=== PATIENT | male | born 1950 ===

== ENCOUNTER 2021-08-12 07:18 | Day surgery (SDC) | payer MEDICARE, BC ==
[2021-08-12] MEDS ORDERED: fentaNYL 100 MCG/2 ML SDV ONE (07:39)
[2021-08-12] MEDS ORDERED: Propofol 200 MG/20 ML SDV ONE (07:39)
[2021-08-12] MEDS ORDERED: Lactated Ringers 1,000 ML IV SCH ×2 (08:00→15:30)
--- NOTE | 2021-08-12 08:00 | PCM.PREANE ---
Preanesthetic Assessment - Anesthesia/Transfusion/Family Hx Anesthesia History: Prior Anesthesia Reaction (PONV) Type of Anesthesia Reaction: Other (see below) (PONV) Family History of Anesthesia Reaction: No Transfusion History: No Prior Transfusion(s) - Review of Systems General: No Symptoms, Other (Recently diagnosied with prostate CA yet no treatment has been provided. Gout.) Pulmonary: No Symptoms, Other (Quit smoking 57 years ago) Cardiovascular: No Symptoms (HTN well controlled. Pt states to being physically active with no SOB of CP) Gastrointestinal: No Symptoms, Other (GERD well controlled) Neurological: No Symptoms Other: Reports: None - Physical Assessment NPO Status Date: 08/11/21 NPO Status Time: 00:00 Height: 1.8 m Weight: 94.801 kg ASA Class: 2 Mental Status: Alert & Oriented x3 Airway Class: Mallampati = 2 (Liu) Dentition: Reports: Normal Dentition Thyro-Mental Finger Breadths: 3 Mouth Opening Finger Breadths: 3 ROM/Head Extension: Full Lungs: Clear to Auscultation, Normal Respiratory Effort Cardiovascular: Regular Rate, Regular Rhythm - Allergies Allergies/Adverse Reactions: Allergies Allergy/AdvReac Type Severity Reaction Status Date / Time acetaminophen [From Vicodin] Allergy Nausea and Verified 08/07/21 12:08 Vomiting hydrocodone [From Vicodin] Allergy Nausea and Verified 08/07/21 12:08 Vomiting Penicillins Allergy Anaphylactic Verified 08/07/21 12:08 Shock - Blood Blood Available: No - Anesthesia Plan Pre-Op Medication Ordered: None - Acknowledgements Anesthesia Type Planned: General Anesthesia Pt an Appropriate Candidate for the Planned Anesthesia: Yes Alternatives and Risks of Anesthesia Discussed w Pt/Guardian: Yes Pt/Guardian Understands and Agrees with Anesthesia Plan: Yes PreAnesthesia Questionnaire HEENT History: Reports: Cataract, Impaired Vision Cardiovascular History: Reports: Hypertension Respiratory History: Reports: None Gastrointestinal History: Reports: Diverticulosis, GERD Genitourinary History: Reports: Prostate Disorder Other Genitourinary History: recent dx of Prostate cancer Musculoskeletal History: Reports: Gout Neurological History: Reports: None Psychiatric History: Reports: None Endocrine/Metabolic History: Reports: None Hematologic History: Reports: None Immunologic History: Reports: None Oncologic (Cancer) History: Reports: Prostate Dermatologic History: Reports: None - Past Surgical History Head Surgeries/Procedures: Reports: None HEENT Surgical History: Reports: Cataract Surgery, Detached Retina, Other (See Below) Other HEENT Surgeries/Procedures: repair of eye injury GI Surgical History: Reports: Colonoscopy Male Surgical History: Reports: Prostate Biopsy Musculoskeletal Surgical History: Reports: None - SUBSTANCE USE Tobacco Use Status *Q: Never Tobacco User Recreational Drug Use History: No - HOME MEDS Home Medications: Home Meds Multivitamin 1 tab PO DAILY 08/07/21 [History] Omeprazole 20 mg PO QAM 08/07/21 [History] Telmisartan 80 mg PO QAM 08/07/21 [History] allopurinoL [Zyloprim] 100 mg PO BID 08/07/21 [History] amLODIPine Besylate [Amlodipine Besylate] 10 mg PO BEDTIME 08/07/21 [History] - CURRENT (IN HOUSE) MEDS Current Meds: Current Medications Lactated Ringer's (Ringers, Lactated) 1,000 mls @ 125 mls/hr IV ASDIRECTED ARIAN Discontinued Medications Fentanyl (Fentanyl 100 Mcg/2 Ml Sdv) Confirm Administered Dose 100 mcg .ROUTE .STK-MED ONE Stop: 08/12/21 07:40 Lidocaine HCl (Lidocaine 1% 5 Ml Sdv) Confirm Administered Dose 5 ml .ROUTE .STK-MED ONE Stop: 08/12/21 07:40 Propofol (Propofol 200 Mg/20 Ml Sdv) Confirm Administered Dose 400 mg .ROUTE .STK-MED ONE Stop: 08/12/21 07:40
[2021-08-12] MEDS ORDERED: Ondansetron 4 MG/2 ML SDV IVPUSH ONE (08:01)
[2021-08-12] MEDS ORDERED: Metoclopramide 10 MG/2 ML SDV IVPUSH ONE (08:01)
--- NOTE | 2021-08-12 10:07 | PCM.OPNOTE ---
- General Post-Op/Procedure Note Date of Surgery/Procedure: 08/12/21 Operative Procedure(s): Colonoscopy and polypectomies Findings: colon polyps Diverticulosis dictation number [id number] Pre Op Diagnosis: screening colonoscopy Post-Op Diagnosis: colon polyps. Diverticulosis [place] [facility] [place]geon: Simone Andrews Pathology: colon polyps Complications: None Condition: Good
--- NOTE | 2021-08-12 10:28 | PCM.POSTAN ---
POST ANESTHESIA ASSESSMENT - MENTAL STATUS Mental Status: Alert, Oriented - VITAL SIGNS Vital Signs: Last Vital Signs Temp 36.6 C 08/12/21 10:06 Pulse 58 L 08/12/21 10:21 Resp 10 L 08/12/21 10:21 BP 83/47 L 08/12/21 10:21 Pulse Ox 99 08/12/21 10:21 - RESPIRATORY Respiratory Status: Respiratory Rate WNL, Airway Patent, O2 Saturation Stable - CARDIOVASCULAR CV Status: Pulse Rate WNL, Blood Pressure Stable - GASTROINTESTINAL GI Status: No Symptoms - POST OP HYDRATION Hydration Status: Adequate & Stable
--- NOTE | 2021-08-12 10:28 | PCM48HPAN ---
Post Anesthesia Note - EVALUATION WITHIN 48HRS OF ANESTHETIC Vital Signs in Normal Range: Yes Patient Participated in Evaluation: Yes Respiratory Function Stable: Yes Airway Patent: Yes Cardiovascular Function Stable: Yes Hydration Status Stable: Yes Pain Control Satisfactory: Yes Nausea and Vomiting Control Satisfactory: Yes Mental Status Recovered: Yes Vital Signs: Last Vital Signs Temp 36.6 C 08/12/21 10:06 Pulse 58 L 08/12/21 10:21 Resp 10 L 08/12/21 10:21 BP 83/47 L 08/12/21 10:21 Pulse Ox 99 08/12/21 10:21
--- NOTE | 2021-08-12 14:44 | OR ---
SURGEON: AUSTIN TAYLOR MD DATE OF PROCEDURE: 08/12/2021 PREOPERATIVE DIAGNOSIS: Screening colonoscopy. POSTOPERATIVE DIAGNOSES: 1. Diverticulosis. 2. Two colon polyps, one at 15 cm and another at 10 cm. PROCEDURES PERFORMED: 1. Colonoscopy. 2. Cold biopsy polypectomy. PRIMARY SURGEON: Austin Taylor MD ANESTHESIA: With Anesthesiology. EXTENT OF COLONOSCOPY: To the cecum. BOWEL PREP: Very good. LIMITATIONS: None. REASON FOR PROCEDURE: Patient is a pleasant 71-year-old gentleman whose last colonoscopy was 10 years ago. It was normal other than diverticulosis. He denies any blood in his stool. He denies any changes in his bowel habits. He denies any family history of colon cancer. PROCEDURE IN DETAIL: Physical examination was performed. Major risks and benefits associated with procedure were explained to the patient in detail. Patient verbalized understanding and agreement of the same. Patient was then connected to appropriate monitoring devices and IV started. EKG, pulse, pulse oximetry, blood pressure, and capnography were monitored throughout the entire procedure. Continuous oxygen and sedation were provided by the anesthesiologist. The patient was placed in left lateral decubitus position. Sedation was began. After adequate sedation was achieved, digital rectal exam was performed. No rectal masses or polyps were felt. The patient did have a hard prostate consistent with his recent diagnosis of prostate cancer. Now, a well-lubricated Olympus colonoscope was inserted into the rectum and advanced under direct visualization to the level of the cecum. Go through the sigmoid colon, there was some diverticulosis which made it a little harder to navigate, but I was able to get through the sigmoid colon all the way to the cecum. Cecum was identified by both visual and anatomic landmarks. Photographs were taken of the cecal cap and terminal ileum. Scope was then slowly withdrawn in a somewhat circular fashion looking at the color, texture, anatomy, and integrity of mucosa from the cecum to the anal canal. The patient did have some light liquid stool which was suctioned and irrigated out for a great look at the mucosa. Again, the patient did have some diverticulosis throughout the sigmoid colon. Right at about 15 cm, the patient had a smaller about 5 to 7 mm polyp that was removed with cold biopsy polypectomy. It was completely removed with good hemostasis. Scope was continued to be withdrawn. The patient had another polyp at 10 cm. This looked more hyperplastic. This was removed again with a cold biopsy polypectomy. The scope was retroflexed in the rectum. He had some noninflamed internal hemorrhoids. The scope was completely removed and the procedure was terminated. ENDOSCOPIC DIAGNOSES: 1. Diverticulosis. 2. Colon polyps at 10 to 15 cm. RECOMMENDATIONS: Followup colonoscopy will depend on pathology, but most likely he will need another one in five years; sooner, if develops signs and symptoms such as change in bowel habits or blood in the stool. STEPHANIE / KEARA /[id number]
== END 2021-08-12 10:50 | disposition home or self-care (01) ==
LOC: MW.SDS 07:18
PROVIDERS: ATTEND Surgery
DX: Z12.11 Encounter for screening for malignant neoplasm of colon (principal); K63.5 Polyp of colon; K57.30 Diverticulosis of large intestine without perforation or abscess without bleeding; K64.8 Other hemorrhoids; M10.9 Gout, unspecified; I10 Essential (primary) hypertension; C61 Malignant neoplasm of prostate; K21.9 Gastro-esophageal reflux disease without esophagitis; Z88.0 Allergy status to penicillin; Z88.8 Allergy status to other drugs, medicaments and biological substances; Z79.899 Other long term (current) drug therapy; Z87.891 Personal history of nicotine dependence
CPT/HCPCS: 45380; J2704; J3010; J7120; 00812; 99100